=== PATIENT | male | born 1965 | race Caucasian/White ===

== ENCOUNTER 2018-06-16 07:00 | Day surgery (SDC) | payer OTHER ==
[~2018-06-16] VITALS: Ht 188 cm; Wt 103.5 kg
[~2018-06-16 07:00] MED LIST: CELEXA40 MG PO; DESYREL 100MG100 MG PO; DESYREL 50MG50 MG; IBU800 M1 PO; KLONOPIN 0.5MG0.5 MG PO; KLONOPIN 1MG1 MG; LIPITOR 10MG10 MG PO; NORCO 325 MG-7.1 TAB PO; ORACEA40MG PO; PRILOSEC 20MG20 MG PO; VIAGRA100 MG PO; lortab PO
[2018-06-16] MEDS ORDERED: DESYREL 100MG100 MG PO (07:15)
[2018-06-16] MEDS ORDERED: CELEXA 20MG20 MG/TAB PO (07:17)
[2018-06-16] MEDS ORDERED: LIPITOR20 MG PO (07:17)
[2018-06-16] MEDS ORDERED: ATARAX 25MG25 MG/TAB PO (07:19)
[2018-06-16] MEDS ORDERED: VIAGRA 25MG TAB25 MG PO (07:19)
[2018-06-16] MEDS ORDERED: HYSINGLA40 PO (07:20)
[2018-06-16 07:48] VITALS: BP 117/70; PULSE 60; TEMP 97.9
[2018-06-16] MEDS ORDERED: PRILOSEC 20MG20 MG PO (07:48)
[2018-06-16 08:55] VITALS: BP 114/69; PULSE 63; TEMP 98.3
[2018-06-16 09:00] VITALS: BP 107/68; PULSE 57
[2018-06-16 09:15] VITALS: BP 110/71; PULSE 53
[2018-06-16 09:30] VITALS: BP 113/69; PULSE 54
== END 2018-06-16 10:00 | disposition home or self-care (01) ==
LOC: SDCO 07:00
DX: Z12.11 Encounter for screening for malignant neoplasm of colon (principal); K57.30 Diverticulosis of large intestine without perforation or abscess without bleeding; K21.0 Gastro-esophageal reflux disease with esophagitis; R19.7 Diarrhea, unspecified; Z90.49 Acquired absence of other specified parts of digestive tract; Z86.010 Personal history of colon polyps; Z83.79 Family history of other diseases of the digestive system
CPT/HCPCS: J2250; J3010; J7030